=== PATIENT | female | born 1995 | race Caucasian/White ===

== ENCOUNTER 2017-03-27 23:03 | Emergency (ER) | payer OTHER ==
[~2017-03-27] VITALS: Ht 162.6 cm; Wt 58.0 kg
[2017-03-27 23:07] VITALS: Ht 162.6 cm; Wt 58.0 kg
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
[2017-03-28 00:47] VITALS: BP 115/68; PULSE 78; RESP 20
[2017-03-28] MEDS ORDERED: IBUPROFEN 600 MG TAB PO ONE (01:00)
== END 2017-03-28 00:49 ==
LOC: E/R 23:03
DX: F10.920 Alcohol use, unspecified with intoxication, uncomplicated (principal); R40.2142 Coma scale, eyes open, spontaneous, at arrival to emergency department; R40.2252 Coma scale, best verbal response, oriented, at arrival to emergency department; R40.2362 Coma scale, best motor response, obeys commands, at arrival to emergency department; S30.810A Abrasion of lower back and pelvis, initial encounter; S19.9XXA Unspecified injury of neck, initial encounter; S09.8XXA Other specified injuries of head, initial encounter; V43.62XA Car passenger injured in collision with other type car in traffic accident, initial encounter
CPT/HCPCS: 70450; 72125

== ENCOUNTER 2018-03-17 08:49 | Emergency (ER) | END 2018-03-17 10:11 | disposition home or self-care (01) ==